=== PATIENT | female | born 1995 | race Caucasian/White ===

== ENCOUNTER 2021-04-09 16:28 | Outpatient (CLI) | payer OTHER ==
--- NOTE | 2021-04-18 13:34 | XRAY Report ---
PROCEDURE: Foot 3 View RT INDICATIONS: PAIN 1ST MP JOINT R FOOT X MONTHS TECHNIQUE: 3 views of the foot were acquired. COMPARISON: None FINDINGS: There is no acute fracture or dislocation. Moderate osteophytic change of the first MTP with flatteni ng of the articular surfaces and subchondral sclerosis along with joint space narrowing. There is a 8 mm lytic/cystic lesion in the distal first metatarsal metaphysis with sclerotic borders. This is fairly close to the joint and may represent a periarticular erosion due to an inflammatory a rthropathy. A degenerative or intraosseous ganglion cyst could cause a similar appearance. Impression deformities of the fourth and fifth digits. IMPRESSION: Moderate first MTP degenerative changes. Lytic/cystic lesion of the distal first metatarsal, likely a n erosion or ganglion cyst related to degenerative changes or inflammatory arthritis. Radiographic fo llow-up is recommended document stability. Reviewed by: Richard Kauffman MD on 04/09/2021 5:02 PM PDT Approved by: Richard Kauffman MD on 04/09/2021 5:02 PM PDT Station ID: [id number]
== END 2021-04-09 16:29 | disposition home or self-care (01) ==
LOC: DI 16:28
PROVIDERS: ATTEND Podiatrist
DX: M79.671 Pain in right foot (principal); M19.071 Primary osteoarthritis, right ankle and foot

== ENCOUNTER 2022-05-06 16:28 | Outpatient (CLI) | payer OTHER | END 2022-05-06 16:29 | disposition home or self-care (01) | LOC: LAB.N 16:28 | PROVIDERS: ATTEND Physician Assistant Medical | DX: A60.00 Herpesviral infection of urogenital system, unspecified (principal) | CPT/HCPCS: 87255 ==